=== PATIENT | female | born 1995 | race Caucasian/White ===

== ENCOUNTER 2024-06-24 02:36 | Emergency (ER) | payer OTHER ==
[~2024-06-24] VITALS: Ht 154.9 cm; Wt 63.6 kg
[2024-06-24 02:49] VITALS: TEMP 98.4
[2024-06-24 03:07] LABS: BASO # 0.1 K/mm3 (0.0-0.2); BASO % 0.7 % (0.0-2.0); EOS # 0.3 K/mm3 (0.0-0.7); EOS % 2.9 % (0.0-4.0); GRAN # 4.3 K/mm3 (1.4-6.5); GRAN % 50.2 % (42.2-75.2); HEMATOCRIT 39.6 % (37.0-47.0); HEMOGLOBIN 13.6 g/dl (12.5-16.0); LYMPH # 3.4 K/mm3 (1.2-3.4); LYMPH % 39.3 % (20.0-51.0); MEAN CELL VOLUME 90 fl (80.0-100.0); MEAN CORPUSCULAR HEMOGLOBIN 31 pg (27-31); MEAN CORPUSCULAR HGB CONC 34 g/dl (33.0-37.0); MEAN PLATELET VOLUME 9.1 fl (7.4-10.4); MONO # 0.5 K/mm3 (0.1-0.6); MONO % 6.3 % (1.7-9.3); PLATELET COUNT 334 K/mm3 (130-400); REDCELL DISTRIBUTION WIDTH-CV 12.1 % (11.5-14.5)
[2024-06-24 03:10] LABS: PROTHROMBIN TIME 10.4 SECONDS (9.7-12.8)
[2024-06-24 03:13] LABS: PARTIAL THROMBOPLASTIN TIME 29.6 SECONDS (26.0-37.0)
[2024-06-24 03:20] LABS: D-DIMER < 200.00 ng/mLDDu (200-230)
[2024-06-24 03:39] LABS: ALANINE AMINOTRANSFERASE 75 U/L (0-55); ALBUMIN 3.9 g/dL (3.5-5.0); ALKALINE PHOSPHATASE 106 U/L (40-150); ANION GAP 11 mmol/L (7-16); AST,SGOT 60 U/L (5-34); BILIRUBIN,TOTAL 0.2 mg/dL (0.2-1.2); BLOOD UREA NITROGEN 18 mg/dL (7-19); CALCIUM 9.4 mg/dL (8.4-10.2); CHLORIDE 106 mEq/L (98-107); CREATININE, serum 0.93 mg/dL (0.57-1.11); GLUCOSE 106 mg/dL (70-99); POTASSIUM 4.1 mEq/L (3.5-4.5); SODIUM 137 mEq/L (136-145)
[2024-06-24] MEDS ORDERED: dexAMETHasone 10 MG/ML VIAL PO ONE (03:45)
[2024-06-24 03:57] LABS: TROPONIN-I < 0.010 ng/mL (0.00-0.033)
[2024-06-24 04:15] VITALS: BP 110/73; PULSE 66
== END 2024-06-24 04:15 | disposition home or self-care (01) ==
LOC: COL.ER 02:36
PROVIDERS: Emergency Medicine
DX: R07.89 Other chest pain (principal)
CPT/HCPCS: J1100